=== PATIENT | male | born 1955 | race Two or more races ===

== ENCOUNTER 2024-05-15 12:28 | Emergency (ER) | payer MEDICARE, MEDICAID, SELFPAY ==
--- NOTE | 2024-05-15 12:42 | XR_ITS ---
Examination: PA chest single view Technique: Upright PA chest single view Exam date and time: May 15, 2024 1251 hrs. Comparison March 29, 2021 Indications: Abdominal pain and fever beginning one week ago. Findings: Early bibasilar pneumonia Mild prominence of ventricle Mild vascular congestion including central vascular engorgement No larry pulmonary edema Impression: Early bibasilar pneumonia
--- NOTE | 2024-05-15 12:42 | XR_ITS ---
Examination: CT abdomen and pelvis without contrast. Coronal 3-D reconstructions. Sagittal 2-D reconstructions. Date and time of exam:May 15, 2024 1329 hrs. Comparison January 02, 2024 Indications: Abdominal pain and nausea of one week CTDI: vol (mGy): 5.43 DLP: (mGycm): 282 Technique: Axial images of the abdomen have been obtained, 3 mm slice thickness Intravenous contrast material has not been administered. Low dose protocols were performed. One or more of the following dose reduction techniques were used; automated exposure control, adjustment of the mA and/or KV according to patient size, use of iterative reconstruction technique. Findings: Focal opacity right base image 39, consider early pneumonia Mild enlargement cardiac contour No focal liver lesions Absent gallbladder Common hepatic duct 8 mm Spleen is not enlarged No pancreatic or adrenal mass No renal or ureteral calculi, no hydronephrosis Abdominal aortic calcification no aneurysmal dilatation Normal appendix A few loops of fluid distended small bowel in the anterior lower abdomen for instance axial image 129 No larry bowel obstruction Air distended rectum Normal seminal vesicles Transverse prostate dimension 4.3 cm Minimal thickening of urinary bladder wall up to 3 mm Moderate osteopenia Moderate to advanced disc narrowing L5-S1 Mild narrowing hip joints Impression: Focal opacity right base consistent with pneumonia Absent gallbladder Common hepatic duct 8 mm, recommend repeat hepatobiliary sonography follow-up No renal or ureteral calculi, no hydronephrosis Normal appendix Mildly fluid distended small bowel loops in the lower abdomen, consider ileus, enteritis such as Crohn's disease
[2024-05-15 13:05] VITALS: BP 133/77; PULSE 66; RESP 20; TEMP 36.4; O2SAT 97; BMI 20.4
[2024-05-15] MEDS: ONDANSETRON ODT 4 MG TABRAP PO (13:22)
[2024-05-15] MEDS: ACETAMINOPHEN w/COD 300-30 TABLET 2 TAB PO (13:22)
[2024-05-15 13:25] LABS: Basophils % (Auto) 0 % (0-2.5); Eosinophils % (Auto) 0 % (0-10); Hematocrit 39.9 % (41.0-53.0); Hemoglobin 13.2 g/dL (13.5-16.0); Immature Granulocytes % (Auto) 1 % (0-0); Immature Granulocytes Auto 0.15 Thou/mm3 (0.00-0.00); Lymphocytes # (Auto) 1.3 Thou/mm3 (1.0-4.8); Lymphocytes % (Auto) 9 % (10-50); Mean Corpuscular HGB Conc 33.1 g/dl (31.0-37.0); Mean Corpuscular Hemoglobin 25.8 pg (25.0-35.0); Mean Corpuscular Volume 78 fL (80-100); Monocytes # (Auto) 0.7 Thou/mm3 (0.0-0.8); Monocytes % (Auto) 5 % (0-12); Neutrophils # (Auto) 12.3 Thou/mm3 (1.8-7.7); Neutrophils % (Auto) 85 % (37-80); Nucleated Red Blood Cell % 0 /100 WBC (0); Platelet Count 427 Thou/mm3 (140-440); RDW Standard Deviation 42.5 fL (35.1-43.9); Red Blood Count 5.11 Miln/mm3 (4.50-5.90); White Blood Count 14.4 Thou/mm3 (3.8-10.6)
[2024-05-15 14:02] LABS: Alanine Aminotransferase 11 U/L (10-49); Albumin, Serum 4.3 gm/dL (3.4-4.8); Albumin/Globulin Ratio 1.4 (1.2-2.2); Alkaline Phosphatase 97 U/L (46-116); Amylase 35 U/L (30-118); Anion Gap 10 (7-16); Aspartate Amino Transferase 10 U/L (0-34); BUN/Creatinine Ratio 25 Ratio (12-20); Bilirubin,Total 0.5 mg/dL (0.3-1.2); Blood Urea Nitrogen 15 mg/dL (9-23); Calcium 9.3 mg/dL (8.3-10.6); Calcium (Corrected) 9.3 mg/dL (8.5-10.1); Carbon Dioxide 25.3 mMol/L (20.0-31.0); Chloride 99 mMol/L (98-107); Creatinine (Component) 0.6 mg/dL (0.6-1.3); Globulin 3.1 gm/dL (2.3-3.5); Glucose 128 mg/dL (74-106); Lipase 28 U/L (12-53); Magnesium 1.9 mg/dL (1.6-2.6); Osmolality,Calculated 271 (275-295); Potassium 3.7 mMol/L (3.4-5.1); Sodium 134 mMol/L (136-145); Total Protein 7.4 gm/dL (5.7-8.2); eGFR > 60 See Note
[2024-05-15] MEDS: AZITHROMYCIN 250 MG TABLET 500 MG PO (14:04)
--- NOTE | 2024-05-15 14:30 | PD.EDABDPN ---
ED Abdominal Pain RME/HPI General Chief Complaint: Abdominal Pain Stated complaint: ABD PAIN/FEVER x 1 WEEK Time seen by provider: 05/15/24 12:30 Arrival date/time: 05/15/24 12:28 RME / HPI RME / HPI narrative: This section includes all my notes and documentations, including HPI, PE, and ED course. Jeronimo Hernandez MD HPI: 69-year-old male here with about a week history of worsening cough, productive cough, purulent sputum, and dyspnea. And abdominal pain and vomiting and diarrhea. No obvious fever. No other complaints. ROS: All negative except as documented in HPI. Physical Exam: General: Alert and oriented. Hacking cough noted. Eyes: Conjunctivae and lids clear. ENT: No nasal congestion. Pharynx normal. TM normal bilaterally. Neck: Supple. Heart: RRR. Lungs: No respiratory distress. Good air movement with bilateral rhonchi. Abdomen: Soft with equivocal tenderness, difficult to localize. Normal bowel sounds. No distension. No rebound or guarding. Back: No CVA tenderness. Skin: Warm and dry. Neuro: Alert and oriented X 3. I reviewed all diagnostic test results. My interpretation of the chest x-ray is infiltrates. My review of the abdominal CT report is enteritis. Blood tests remarkable for WBC 14.4. At this point, diagnoses include pneumonia and enteritis. Treatment here included Zofran and two Tylenol #3 and Zithromax Significant improvement noted. Recommended a trial of outpatient treatment. Based on my best medical judgment, made decision no further evaluation or treatment indicated at this time. Patient understands and agrees to the discharge instructions customized and printed, see below. Discharge instructions from Dr. Hernandez: --After evaluation, you have pneumonia (infection of the lungs) and enteritis (infection of your intestines). --No physical exertion for 3 days to help rest the lungs. --No smoking or exposure to smoking or pets or dust or cold or humidity. --Levaquin and Flagyl to kill the germs causing the infections. --Prednisone to help decrease inflammation for both infections. --Albuterol 2 puffs every 4-6 hours as needed for cough or shortness of breath. --Zofran for nausea/vomiting. For good hydration, increase oral fluid and maintain clear urine. If dark or yellow, increase oral fluid. --Tylenol with codeine for severe pain. --See a private doctor on 05/17/2024 for recheck and further care. Ask for help until you are completely better. To make sure there is no serious intra-abdominal condition, ask for help with more investigation not available here in the ER. Such as EGD or scoping the stomach, colonoscopy or scoping the colon, and referral to see senior underwriting assistant. --Seek immediate medical care with worsening or with any concerns. Jeronimo Hernandez MD Related Data Home Medications ?Medication ?Instructions ?Recorded ?Confirmed aspirin 81 mg tablet 81 mg PO DAILY ##0 07/14/09 03/22/21 clopidogrel 75 mg tablet (Plavix) 75 mg PO DAILY ##0 07/14/09 03/22/21 simvastatin 40 mg tablet (Zocor) 40 mg PO HS High Cholesterol #0 11/15/13 03/22/21 tabs nitroglycerin 0.4 mg sublingual 0.4 mg SL PRN PRN CHEST PAIN #0 07/20/14 03/22/21 tablet (Nitrostat) tabs gabapentin 600 mg tablet 600 mg PO TID 10/16/20 03/22/21 amitriptyline 25 mg tablet 25 mg PO QDAY 03/22/21 03/22/21 hydrocodone 5 mg-acetaminophen 325 1 tab PO QDAY 03/22/21 03/22/21 mg tablet Previous Rx's ?Medication ?Instructions ?Recorded cephalexin 750 mg capsule (Keflex) 750 mg PO BID #10 caps 03/22/21 dexamethasone 6 mg tablet 6 mg PO QDAY #7 tabs 03/29/21 (Decadron) ibuprofen 600 mg tablet 600 mg PO Q8H PRN pain #30 tabs 03/29/21 cyclobenzaprine 10 mg tablet 10 mg PO HS PRN muscle spasm #14 04/29/21 tabs ibuprofen 600 mg tablet 600 mg PO Q8H PRN pain #30 tabs 04/29/21 ciprofloxacin HCl 500 mg tablet 500 mg PO BID #14 tabs 01/02/24 (Cipro) dicyclomine 20 mg tablet 20 mg PO QID PRN abdominal pain 01/02/24 #30 tabs acetaminophen 300 mg-codeine 30 mg 2 tab PO TID PRN pain #20 tabs 05/15/24 tablet albuterol sulfate 90 mcg/actuation 2 inh inhalation QID PRN shortness 05/15/24 aerosol inhaler of breath or wheezing #8.5 grams levofloxacin 500 mg tablet 500 mg PO QDAY 10 days #10 tabs 05/15/24 metronidazole 500 mg tablet 500 mg PO BID 10 days #20 tabs 05/15/24 ondansetron 4 mg disintegrating 4 mg PO TID PRN nausea and 05/15/24 tablet vomiting 5 days #10 tabs prednisone 50 mg tablet 50 mg PO QDAY #3 tabs 05/15/24 Allergies Allergy/AdvReac Type Severity Reaction Status Date / Time almond Allergy Severe Difficulty Verified 05/15/24 12:31 Breathing almond oil Allergy Severe DIFFICULTY Verified 05/15/24 12:31 BREATHING fish derived Allergy Severe Difficulty Verified 05/15/24 12:31 Breathing fish oil Allergy Severe Difficulty Verified 05/15/24 12:31 Breathing Course Quality Measures none Orders Category Date Time Status Bedside COVID-19 Antigen Test NOW Care 05/15/24 12:41 Completed Bedside Influenza A&B Antigen Test NOW Care 05/15/24 12:[address] abdomen pelvis wo con Stat Exams 05/15/24 12:42 Completed XR chest 1V portable Stat Exams 05/15/24 12:42 Completed Amylase Stat Lab 05/15/24 13:06 Completed CBC Stat Lab 05/15/24 13:06 Completed CMP [Comprehensive Metabolic Panel] Stat Lab 05/15/24 13:06 Completed Lipase Stat Lab 05/15/24 13:06 Completed Magnesium Stat Lab 05/15/24 13:06 Completed ACETAMINOPHEN w/COD 300-30 [Tylenol w/Cod #3] Med 05/15/24 12:41 Discontinued 2 tab PO X1 ONE Azithromycin Po [Zithromax PO] Med 05/15/24 13:33 Discontinued 500 mg PO X1 ONE Ondansetron Odt [Zofran Odt] Med 05/15/24 12:41 Discontinued 4 mg PO X1 ONE Vital Signs Vital signs: Vital Signs Temperature 97.6 F 05/15/24 13:05 Pulse Rate 66 05/15/24 13:05 Respiratory Rate 20 05/15/24 13:05 Blood Pressure 133/77 H 05/15/24 13:05 Pulse Oximetry (%) 97 01/11/25 13:05 Oxygen Delivery Method Room Air 05/15/24 13:05 Abdominal Pain MDM Patient data External records reviewed:: [facility] previous records Clinical information provided by:: patient Social determinants that could affect healthcare access:: none Patient has the following chronic illnesses:: See chart How is presenting disease/condition affected by chronic disease/condition?: exacerbated by Evaluation data The following diagnostics were reviewed and interpreted by me:: lab results and radiology exam(s) Lab and/or radiology exams considered but not ordered:: None Interpretation Summary: Pneumonia and enteritis Medications / Prescriptions Medications or Prescriptions considered but not ordered:: None Medication administrations:: Medication Administration History Discontinued Medications Acetaminophen/Codeine Phosphate (Acetaminophen W/Cod 300-30 Tablet) 2 tab PO X1 ONE Stop: 05/15/24 12:42 Last Admin: 05/15/24 13:22 Dose: 2 tab Documented By: Azithromycin (Azithromycin 250 Mg Tablet) 500 mg PO X1 ONE Stop: 05/15/24 13:34 Last Admin: 05/15/24 14:04 Dose: 500 mg Documented By: Ondansetron HCl (Ondansetron Odt 4 Mg Tabrap) 4 mg PO X1 ONE; Protocol Stop: 05/15/24 12:42 Last Admin: 05/15/24 13:22 Dose: 4 mg Documented By: Zofran and two Tylenol #3 and Zithromax Consultations Consultation(s) initiated? (list below): No Diagnosis Differential diagnosis abdominal pain: acute appendicitis, calculus of kidney, diverticulitis, gastroenteritis, pancreatitis and small bowel obstruction Most likely diagnosis given after review of the tests above:: Pneumonia and enteritis Admission Indicated Admission indicated?: not indicated Explain why admission is indicated or not indicated:: Admission criteria not met Admission Request Was there a request for admission?: No Disposition Plan Disposition Plan: Discharge Discharge Attestation Discharge Attestation: The patient and all family members were given an opportunity to ask questions and understood the discharge instructions. Discharge instructions specifically effects, indications for sooner follow up or return to the emergency department, and the expected course of current diagnosis. Patient condition: Stable Discharge Plan Plan Patient Disposition: HOME (Self Care) Prescriptions/Referrals Prescriptions/Med Rec: New metronidazole 500 mg tablet 500 mg PO BID 10 Days Qty: 20 0RF acetaminophen-codeine 300-30 mg tablet 2 tab PO TID MDD 6 PRN (Reason: pain) Qty: 20 0RF albuterol sulfate 90 mcg/actuation HFA aerosol inhaler 2 inh inhalation QID PRN (Reason: shortness of breath or wheezing) Qty: 8.5 0RF ondansetron 4 mg tablet,disintegrating 4 mg PO TID PRN (Reason: nausea and vomiting) 5 Days Qty: 10 0RF levofloxacin 500 mg tablet 500 mg PO QDAY 10 Days Qty: 10 0RF prednisone 50 mg tablet 50 mg PO QDAY Qty: 3 0RF No Action clopidogrel [Plavix] 75 MG tablet 75 mg PO DAILY Qty: 0 aspirin 81 MG tablet 81 mg PO DAILY Qty: 0 simvastatin [Zocor] 40 MG tablet 40 mg PO HS Qty: 0 nitroglycerin [Nitrostat] 0.4 MG tablet, sublingual 0.4 mg SL PRN PRN (Reason: CHEST PAIN) Qty: 0 gabapentin 600 mg tablet 600 mg PO TID hydrocodone-acetaminophen 5-325 mg tablet 1 tab PO QDAY amitriptyline 25 mg tablet 25 mg PO QDAY cephalexin [Keflex] 750 mg capsule 750 mg PO BID Qty: 10 0RF ibuprofen 600 mg tablet 600 mg PO Q8H PRN (Reason: pain) Qty: 30 0RF dexamethasone [Decadron] 6 mg tablet 6 mg PO QDAY Qty: 7 0RF ibuprofen 600 mg tablet 600 mg PO Q8H PRN (Reason: pain) Qty: 30 0RF cyclobenzaprine 10 mg tablet 10 mg PO HS PRN (Reason: muscle spasm) Qty: 14 0RF ciprofloxacin HCl [Cipro] 500 mg tablet 500 mg PO BID Qty: 14 0RF dicyclomine 20 mg tablet 20 mg PO QID PRN (Reason: abdominal pain) Qty: 30 0RF Referrals: Juarez Griffin PA-C [Primary Care Provider] - In 1 week Problem List Clinical Impression: Pneumonia, Enteritis Patient/Caregiver Discharge Instructions Discharge Activity: activity as tolerated Education Materials: ED Gastroenteritis, Noninfectious, ED Pneumonia (Adult) Additional Instructions: Discharge instructions from Dr. Hernandez: --After evaluation, you have pneumonia (infection of the lungs) and enteritis (infection of your intestines). --No physical exertion for 3 days to help rest the lungs. --No smoking or exposure to smoking or pets or dust or cold or humidity. --Levaquin and Flagyl to kill the germs causing the infections. --Prednisone to help decrease inflammation for both infections. --Albuterol 2 puffs every 4-6 hours as needed for cough or shortness of breath. --Zofran for nausea/vomiting. For good hydration, increase oral fluid and maintain clear urine. If dark or yellow, increase oral fluid. --Tylenol with codeine for severe pain. --See a private doctor on 05/17/2024 for recheck and further care. Ask for help until you are completely better. To make sure there is no serious intra-abdominal condition, ask for help with more investigation not available here in the ER. Such as EGD or scoping the stomach, colonoscopy or scoping the colon, and referral to see senior underwriting assistant. --Seek immediate medical care with worsening or with any concerns. Print Language: Romansh Stand Alone Forms: [employer] Award Info., Patient Portal Info Letter
== END 2024-05-15 14:47 | disposition home or self-care (01) ==
PROVIDERS: Emergency Provider Emergency Medicine; PCP Physician Assistant
DX: J18.9 Pneumonia, unspecified organism (principal); K52.9 Noninfective gastroenteritis and colitis, unspecified
CPT/HCPCS: 36415; 71045; 74176; 80053; 82150; 83690; 83735; 85025; 87400; 87811; 99284; Q0162; A9270

== ENCOUNTER 2024-09-20 05:29 | Emergency (ER) | payer MEDICARE, MEDICAID, SELFPAY ==
[2024-09-20] VITALS (8 sets, daily range): BP systolic 127–153; BP diastolic 63–75; PULSE 50–73; RESP 15–25; TEMP 36.6–37.1; O2SAT 92–100; BMI 22.6
--- NOTE | 2024-09-20 05:40 | EKG_ITS ---
[facility] Test Date: 2024-09-20 Pat Name: BETH GONZALEZ Department: Room: - Gender: Male Pathology Collector: : 1955 Requested By: Robin Eddy Order Number: [id number] Reading MD: Robin Eddy Measurements Intervals Sacul Rate: 49 P: 52 [place]: 178 QRS: 26 QRSD: 110 T: -82 QT: 471 QTc: 427 Interpretive Statements SINUS BRADYCARDIA Compared to ECG 12/28/2021 15:17:39 Sinus rhythm no longer present /store/[id number].pdf
--- NOTE | 2024-09-20 05:41 | PD.EDRME ---
Rapid Medical Screening Exam RME Arrival date/time: 09/20/24 05:29 Chief Complaint: Abdominal Pain Time Seen by Provider: 09/20/24 05:43 Vital signs: Vital Signs Temperature 97.8 F 09/20/24 05:44 Pulse Rate 52 L 09/20/24 05:44 Respiratory Rate 15 09/20/24 05:44 Blood Pressure 153/75 H 09/20/24 05:44 Pulse Oximetry (%) 97 09/20/24 05:44 Oxygen Delivery Method Room Air 09/20/24 05:44 RME Narrative: 69yo male with a history of HTN, HLD, DC (2004), cholecystectomy BIBA from home presents to the ED for a chief complaint of epigastric pain x 1 day. Pain is sharp and severe in nature. Reports associated N/V x1. Patient is a current tobacco smoker, but denies any alcohol or illicit drug use. He is not taking any of his medications.
--- NOTE | 2024-09-20 05:53 | XR_ITS ---
Examination: Abdominal series 3 views with AP upright chest TECHNIQUE: AP upright chest AP upright AP supine abdomen total 3 views Date and time: September 20, 2024 0719 hours INDICATIONS: Abdominal pain and distention this read. FINDINGS: Air distended small bowel loops in the left abdomen There is air and stool in the colon No free air IMPRESSION: Suspicious for early small bowel obstruction, consider CT scan abdomen and pelvis with intravenous contrast follow-up
--- NOTE | 2024-09-20 06:00 | PC.NURSE ---
Clear Coat Sprayer assumes care of patient at this time, Pt BIBA from home with c/o epigastic painx 1 day. Pt is A/O x 3 but appears very lethargic, pt is able to follow engineering writer commands and refuses to change into gown at this time. fur trapper made aware.
[2024-09-20] MEDS: SODIUM CHLORIDE 0.9% 500 ML 500 ML 999 ML IV (06:03)
[2024-09-20] MEDS: ONDANSETRON INJ 2 MG/ML INJ 2 ML 4 MG IV (06:05)
[2024-09-20 06:07] LABS: Basophils # (Auto) 0.1 Thou/mm3 (0.0-0.2); Basophils % (Auto) 0 % (0-2.5); Eosinophils # (Auto) 0.2 Thou/mm3 (0.0-0.5); Eosinophils % (Auto) 1 % (0-10); Hemoglobin 12.9 g/dL (13.5-16.0); Immature Granulocytes % (Auto) 0 % (0-0); Immature Granulocytes Auto 0.04 Thou/mm3 (0.00-0.00); Lymphocytes # (Auto) 1.6 Thou/mm3 (1.0-4.8); Lymphocytes % (Auto) 10 % (10-50); Mean Corpuscular HGB Conc 32.3 g/dl (31.0-37.0); Mean Corpuscular Hemoglobin 26.2 pg (25.0-35.0); Mean Corpuscular Volume 81 fL (80-100); Monocytes # (Auto) 0.7 Thou/mm3 (0.0-0.8); Monocytes % (Auto) 5 % (0-12); Neutrophils # (Auto) 13.3 Thou/mm3 (1.8-7.7); Neutrophils % (Auto) 84 % (37-80); Nucleated Red Blood Cell % 0 /100 WBC (0); Platelet Count 263 Thou/mm3 (140-440); RDW Standard Deviation 52.8 fL (35.1-43.9); Red Blood Count 4.93 Miln/mm3 (4.50-5.90); White Blood Count 15.9 Thou/mm3 (3.8-10.6)
[2024-09-20 06:27] LABS: Prothrombin Time 11.4 Seconds (9.0-12.2)
--- NOTE | 2024-09-20 06:36 | EDNOTE_ITS ---
ED General RME/HPI General Chief complaint: Abdominal Pain Stated complaint: ABD PAIN,N/V Time Seen by Provider: 09/20/24 05:43 Arrival date/time: 09/20/24 05:29 RME / HPI RME / HPI narrative: This patient is a 69-year-old male with past medical history of hypertension, CT in 2004, hyperlipidemia, history of cholecystectomy presented to the ED on 09/20/2024 with chief complaint of 1 day history of epigastric pain and RUQ pain severe sharp in nature nonradiating associated with nausea and vomiting. Patient reported that he vomited twice consisting of digested food particles without blood. He also reported that he is passing bowel movements regularly and had a bowel movement this morning with passage of flatus. He reported to have some mild cough without phlegm. He was feeling shaky this morning. He denied any chest pain, shortness of breath, dysuria. Patient follows up with his PCP as outpatient. Patient had been previously admitted for the similar presentation multiple times in the hospital with multiple CT scans showing intrahepatic biliary tract dilation and was recommended to have elective MRCP as outpatient however patient was not aware of his previous CT findings. Patient did not proceed with the investigation for intrahepatic biliary tract dilation with his PCP and was not aware on his findings. Abdominal x-ray was suspicious for early SBO however patient was passing gas and having bowel movements ther efore had low suspicion for SBO. Patient also had chronic cough ongoing from last couple of months most likely due to chronic bronchitis pattern. EKG showed sinus bradycardia with QTc 427. No axis deviation. Vitals showed blood pressure 142/75, heart rate 71, respiratory 20 and afebrile. He was saturating well on room air. Labs were significant for leukocytosis white count 15.9, hemoglobin 12.9. INR 1.0. Chemistry panel showed sodium 142 potassium 3.5, chloride 107. Kidney function showed BUN 12 and creatinine 0.9. Blood glucose 130. Serum lipase was negative. Magnesium 1.9. Urinalysis is pending. PMH: As above PSH: Cholecystectomy SH: Smokes 1 pack of cigarette every day. Denies drinking alcohol. No history of illicit drug use. Allergies: NKDA Home medications: Aspirin, Plavix, breathing inhalers,simvastatin per chart review Differential diagnoses include SBO, pancreatitis, GERD, primary sclerosing cholangitis, cholangiocarcinoma, chronic bronchitis 8:17 AM patient was given Dilaudid 0.5 mg IV x 1, 1 L NS, PO kcl 20 meq x1 and breathing treatments with albuterol and ipratropium. Patient reported that his pain is much better than previously. X-ray was suspicious for early SBO however patient was passing gas and bowel movements appropriately and had a bowel movement this morning. Patient was advised to follow-up with his PCP for workup of intrahepatic biliary tract dilation with an MRCP and was given option to visit [facility] across the street and all the information was provided. SBO and pancreatitis were ruled out. DC instructions Patient was advised to follow-up with his PCP for referral for GI specialist and acquiring MRCP for possible workup of intrahepatic biliary tract dilation Continue taking all his medications as prescribed Patient can schedule an appt in [place] [facility] at [address] by calling [phone] In case of emergency or worsening signs of symptoms patient was advised to come back to the ER or call 911 complaint: Epigastric abdominal pain and right upper quadrant Onset (ago): day(s) (1) Location: abdomen (Epigastrium and right upper quadrant) Radiation: non-radiation Severity: severe Quality: stabbing Consistency: intermittent Relieving factors: none Associated symptoms: nausea/vomiting Related Data Home Medications ?Medication ?Instructions ?Recorded ?Confirmed aspirin 81 mg tablet 81 mg PO DAILY ##0 07/14/09 03/22/21 clopidogrel 75 mg tablet (Plavix) 75 mg PO DAILY ##0 0 07/14/09 03/22/21 simvastatin 40 mg tablet (Zocor) 40 mg PO HS High Chol esterol #0 11/15/13 03/22/21 tabs nitroglycerin 0.4 mg sublingual 0.4 mg SL PRN PRN CHES T PAIN #0 07/20/14 tablet (Nitrostat) tabs gabapentin 600 mg tablet 600 mg PO TID 10/16/2003/22 amitriptyline 25 mg tablet 25 mg PO QDAY 03/22/2103/05 hydrocodone 5 mg-acetaminophen 325 1 tab PO QDAY 03/2203/22/21 mg tablet Previous Rx's ?Medication ?Instructions ?Recorded cephalexin 750 mg capsule (Keflex) 750 mg PO BID #10 c aps 03/22/21 dexamethasone 6 mg tablet 6 mg PO QDAY #7 tabs 03/29/ 1 (Decadron) ibuprofen 600 mg tablet 600 mg PO Q8H PRN pain #30 t abs 03/29/21 cyclobenzaprine 10 mg tablet 10 mg PO HS PRN muscle sp asm #14 04/29/21 tabs ibuprofen 600 mg tablet 600 mg PO Q8H PRN pain #30 t abs 04/29/21 ciprofloxacin HCl 500 mg tablet 500 mg PO BID #14 tabs 01/02/24 (Cipro) dicyclomine 20 mg tablet 20 mg PO QID PRN abdominal p ain 01/02/24 #30 tabs acetaminophen 300 mg-codeine 30 mg 2 tab PO TID PRN pa in #20 tabs 05/15/24 tablet albuterol sulfate 90 mcg/actuation 2 inh inhalation QI D PRN shortness 05/15/24 aerosol inhaler of breath or wheezing #8.5 g gene prednisone 50 mg tablet 50 mg PO QDAY #3 tabs Allergies Allergy/AdvReac Type Severity Reaction Status Date / Time almond Allergy Severe Difficulty Verified 05/15/24 12:31 Breathing almond oil Allergy Severe DIFFICULTY Verified 05/15/24 12:31 BREATHING fish derived Allergy Severe Difficulty Verified 05/15/24 12:31 Breathing fish oil Allergy Severe Difficulty Verified 05/15/24 12:31 Breathing Review of Systems Review of Systems Systems Reviewed: All systems reviewed, normal except as documented Past Medical History Past Medical History CARDIAC: Positive Cardiac Disorders, Myocardial Infarction, Hypercholesterolemia and Hypertension; Negative Congestive Heart Failure RESPIRATORY: Positive Asthma; Negative Chronic Obstructive Pulmonary Disease (COPD) GASTROINTESTINAL: Positive Gastrointestinal Disorders, Gall Bladder Disease and Gastroesophageal Reflux Disease GENITOURINARY: Negative Renal Disease ENDOCRINE: Negative Diabetes Mellitus Type 1 or Diabetes Mellitus Type 2 HEMATOLOGIC: Negative Sickle Cell Disease PSYCHO/SOCIAL: Positive Anxiety Surgical History SURGICAL: Positive Tonsillectomy and Abdominal Surgery Social History SMOKING STATUS: Heavy (> 1 pack/day) Travel History EBOLA RISK: No ED Exam Narrative Physical exam: GENERAL APPEARANCE: AxOx4, male in mild distress due to abdominal pain. Saturating well on room air. HEENT: NC, AT. Dry mucous membrane. EOMI, clear conjunctiva, oropharynx clear. NECK: Supple without lymphadenopathy. No stiffness or restricted ROM. HEART: Sinus bradycardia with regular rhythm, normal S1/S2, no m/r/g LUNGS: CTAB, moving air well. Mild wheezing heard on auscultation. ABDOMEN: Soft, epigastric and right upper quadrant tenderness nondistended with good bowel sounds heard. BACK: No CVAT, no obvious deformity. EXTREMITIES: Without cyanosis, clubbing or edema. NEUROLOGICAL: Grossly nonfocal. Alert and oriented, moving all 4 extremities. CN not formally tested but appear grossly intact. Observed to ambulate with normal gait. Skin: Warm and dry without any rash. Pscyh: Appropriate mood and affect Course Course Course Narrative: This patient is a 69-year-old male with past medical history of hypertension, CT in 2004, hyperlipidemia, history of cholecystectomy presented to the ED on 09/20/2024 with chief complaint of 1 day history of epigastric pain and RUQ pain severe sharp in nature nonradiating associated with nausea and vomiting. Patient reported that he vomited twice consisting of digested food particles without blood. He also reported that he is passing bowel movements regularly and had a bowel movement this morning with passage of flatus. He reported to mal[place] ve some mild cough without phlegm. He was feeling shaky this morning. He denied any chest pain, shortness of breath, dysuria. Patient follows up with his PCP as outpatient. Patient had been previously admitted for the similar presentation multiple times in the hospital with multiple CT scans showing intrahepatic biliary tract dilation and was recommended to have elective MRCP as outpatient however patient was not aware of his previous CT findings. Patient did not proceed with the investigation for intrahepatic biliary tract dilation with his PCP and was not aware on his findings. Abdominal x-ray was suspicious for early SBO however patient was passing gas and having bowel movements therefore had low suspicion for SBO. Patient also had chronic cough ongoing from last couple of months most likely due to chronic bronchitis pattern. EKG showed sinus bradycardia with QTc 427. No axis deviation. Vitals showed blood pressure 142/75, heart rate 71, respiratory 20 and afebrile. He was saturating well on room air. Labs were significant for leukocytosis white count 15.9, hemoglobin 12.9. INR 1.0. Chemistry panel showed sodium 142 potassium 3.5, chloride 107. Kidney function showed BUN 12 and creatinine 0.9. Blood glucose 130. Serum lipase was negative. Magnesium 1.9. Urinalysis is pending. Differential diagnoses include SBO, pancreatitis, GERD, primary sclerosing chola ngitis, cholangiocarcinoma, chronic bronchitis 8:17 AM patient was given Dilaudid 0.5 mg IV x 1, 1 L NS, PO kcl 20 meq x1 and breathing treatments with albuterol and ipratropium. Patient reported that his pain is much better than previously. X-ray was suspicious for early SBO however patient was passing gas and bowel movements appropriately and had a bowel movement this morning. Patient was advised to follow-up with his PCP for workup of intrahepatic biliary tract dilation with an MRCP and was given option to visit [facility] across the street and all the information was prov ided. SBO and pancreatitis were ruled out. DC instructions Patient was advised to follow-up with his PCP for referral for GI specialist and acquiring MRCP for possible workup of intrahepatic biliary tract dilation Continue taking all his medications as prescribed Patient can schedule an appt in [place] [facility] at [address] by calling [phone] In case of emergency or worsening signs of symptoms patient was advised to come back to the ER or call 911 Quality Measures none Orders Category Date Time Status Crawler Tractor Operator STAT Care 09/20/24 05:45 Active Continuous Pulse Oximetry STAT Care 09/20/24 05:46 Completed EKG (ED ONLY) *Do not use* NOW Care 09/20/24 05:40 Completed Insert IV STAT Care 09/20/24 05:45 Active Intake and Output Routine Care 09/20/24 05:46 Ordered NPO STAT Care 09/20/24 05:45 Active EKG (ED Only) Stat Exams 09/20/24 05:40 Draft XR abdomen series w chest 1V Stat Exams 09/20/24 05:53 Completed CBC Stat Lab 09/20/24 05:50 Completed Comprehensive Metabolic Panel Stat Lab 09/20/24 05:50 Completed Lipase Stat Lab 09/20/24 05:50 Completed Magnesium Stat Lab 09/20/24 05:50 Completed Prothrombin Time with INR Stat Lab 09/20/24 05:50 Completed Urinalysis Stat Lab 09/20/24 07:43 Completed ALBUTEROL RT 0.5ml [Proventil Rt 0.5ml] Med 09/20/24 07:37 Discontinued 10 mg INH X1 ONE Albuterol/Ipratr Rt Michelle [Duoneb Rt Michelle] Med 09/20/24 07:37 Discontinued 3 ml INH X1 ONE HYDROmorphone INJ [Dilaudid Inj] Med 09/20/24 06:00 Discontinued 0.5 mg IVP Q30MIN PRN Ipratropium [place] Rt Michelle [Atrovent Rt Michelle] Med 09/20/24 07:37 Discontinued 1 mg INH X1 ONE Ondansetron Inj [Zofran Inj] Med 09/20/24 05:51 Discontinued 4 mg IV X1 ONE Potassium Chloride [K-Dur] Med 09/20/24 08:13 Discontinued 20 meq PO X1 ONE Sodium Chloride 0.9% 500 ml [Ns] 500 ml Med 09/20/24 05:51 Discontinued IV 999 mls/hr Sodium Chloride Rt Michelle 0.9% [NS Rt Michelle 0.9%] Med 09/20/24 07:37 Active 3 ml INH PRN PRN Vital Signs Vital signs: Vital Signs Temperature 97.8 F 09/20/24 05:44 Pulse Rate 52 L 09/20/24 05:44 Respiratory Rate 15 09/20/24 05:44 Blood Pressure 153/75 H 09/20/24 05:44 Pulse Oximetry (%) 97 09/20/24 05:44 Oxygen Delivery Method Room Air 09/20/24 05:44 Discharge Plan Plan Patient Disposition: HOME (Self Care) Prescriptions/Referrals Prescriptions/Med Rec: No Action clopidogrel [Plavix] 75 MG tablet 75 mg PO DAILY Qty: 0 aspirin 81 MG tablet 81 mg PO DAILY Qty: 0 simvastatin [Zocor] 40 MG tablet 40 mg PO HS Qty: 0 nitroglycerin [Nitrostat] 0.4 MG tablet, sublingual 0.4 mg SL PRN PRN (Reason: CHEST PAIN) Qty: 0 gabapentin 600 mg tablet 600 mg PO TID hydrocodone-acetaminophen 5-325 mg tablet 1 tab PO QDAY amitriptyline 25 mg tablet 25 mg PO QDAY cephalexin [Keflex] 750 mg capsule 750 mg PO BID Qty: 10 0RF ibuprofen 600 mg tablet 600 mg PO Q8H PRN (Reason: pain) Qty: 30 0RF dexamethasone [Decadron] 6 mg tablet 6 mg PO QDAY Qty: 7 0RF ibuprofen 600 mg tablet 600 mg PO Q8H PRN (Reason: pain) Qty: 30 0RF cyclobenzaprine 10 mg tablet 10 mg PO HS PRN (Reason: muscle spasm) Qty: 14 0RF ciprofloxacin HCl [Cipro] 500 mg tablet 500 mg PO BID Qty: 14 0RF dicyclomine 20 mg tablet 20 mg PO QID PRN (Reason: abdominal pain) Qty: 30 0RF acetaminophen-codeine 300-30 mg tablet 2 tab PO TID MDD 6 PRN (Reason: pain) Qty: 20 0RF albuterol sulfate 90 mcg/actuation HFA aerosol inhaler 2 inh inhalation QID PRN (Reason: shortness of breath or wheezing) Qty: 8.5 0RF prednisone 50 mg tablet 50 mg PO QDAY Qty: 3 0RF Referrals: Juarez Griffin PA-C [Primary Care Provider] - In 1 week Problem List Clinical Impression: Abdominal pain, Intrahepatic bile duct dilation Patient/Caregiver Discharge Instructions Other Activity Instructions:: Patient was advised to follow-up with his PCP for referral for GI specialist and acquiring MRCP for possible workup of intrahepatic biliary tract dilation Continue taking all his medications as prescribed In case of emergency or worsening signs of symptoms patient was advised to come back to the ER or call 911 Patient can schedule an appt in [place] [facility] [address] by calling [phone] Print Language: Australian Stand Alone Forms: [employer] Info., Patient Portal Info Letter MDM Narrative MDM hospital course (for use when minimal MDM required): This patient is a 69-year-old male with past medical history of hypertension, CT in 2004, hyperlipidemia, history of cholecystectomy presented to the ED on 09/20/2024 with chief complaint of 1 day history of epigastric pain and RUQ pain severe sharp in nature nonradiating associated with nausea and vomiting. Patient reported that he vomited twice consisting of digested food particles without blood. He also reported that he is passing bowel movements regularly and had a bowel movement this morning with passage of flatus. He reported to have some mild cough without phlegm. He was feeling shaky this morning. He denied any chest pain, shortness of breath, dysuria. Patient follows up with his PCP as outpatient. Patient had been previously admitted for the similar presentation multiple times in the hospital with multiple CT scans showing intrahepatic biliary tract dilation and was recommended to have elective MRCP as outpatient however patient was not aware of his previous CT findings. Patient did not proceed with the investigation for intrahepatic biliary tract dilation with his PCP and was not aware on his findings. Abdominal x-ray was suspicious for early SBO however patient was passing gas and having bowel movements therefore had low suspicion for SBO. Patient also had chronic cough ongoing from last couple of months most likely due to chronic bronchitis pattern. EKG showed sinus bradycardia with QTc 427. No axis deviation. Vitals showed blood pressure 142/75, heart rate 71, respiratory 20 and afebrile. He was saturating well on room air. Labs were significant for leukocytosis white count 15.9, hemoglobin 12.9. INR 1.0. Chemistry panel showed sodium 142 potassium 3.5, chloride 107. Kidney function showed BUN 12 and creatinine 0.9. Blood glucose 130. Serum lipase was negative. Magnesium 1.9. Urinalysis is pending. Differential diagnoses include SBO, pancreatitis, GERD, primary sclerosing cholangitis, cholangiocarcinoma, chronic bronchitis 8:17 AM patient was given Dilaudid 0.5 mg IV x 1, 1 L NS, PO kcl 20 meq x1 and breathing treatments with albuterol and ipratropium. Patient reported that his pain is much better than previously. X-ray was suspicious for early SBO however patient was passing gas and bowel movements appropriately and had a bowel movement this morning. Patient was advised to follow-up with his PCP for workup of intrahepatic biliary tract dilation with an MRCP and was given option to visit [facility] across the street and all the information was provided. SBO and pancreatitis were ruled out. DC instructions Patient was advised to follow-up with his PCP for referral for GI specialist and acquiring MRCP for possible workup of intrahepatic biliary tract dilation Continue taking all his medications as prescribed Patient can schedule an appt in [place] [facility] at [address] by calling [phone] In case of emergency or worsening signs of symptoms patient was advised to come back to the ER or call 118 Medication Administration(s) Medication Administration History Sodium Chloride (Sodium Chloride Rt Michelle 0.9% 3 Ml Nebu) 3 ml INH PRN PRN PRN Reason: SOLN Stop: 10/20/24 07:36 Discontinued Medications Albuterol (Albuterol Rt 2.5 Mg/0.5 Ml Nebu) 10 mg INH X1 ONE Stop: 09/20/24 07:38 Last Admin: 09/20/24 07:45 Dose: 10 mg Documented By: [facility] Albuterol/Ipratropium (Albuterol/Ipratropium (Duoneb) Rt Michelle 3 Ml Nebu) 3 ml INH X1 ONE Stop: 09/20/24 07:38 Hydromorphone HCl (Hydromorphone Inj 2 Mg/Ml Vial) 0.5 mg IVP Q30MIN PRN PRN Reason: PAIN Stop: 09/25/24 05:59 Sodium Chloride (Ns) 500 mls @ 999 mls/hr IV .Q31M ONE Stop: 09/20/24 06:21 Last Infusion: 09/20/24 06:41 Dose: Infused Documented By: Admin: 09/20/24 06:03 Dose: 999 mls/hr Documented By: CVL Ipratropium [place] (Ipratropium Rt 0.5 Mg/ 2.5 Ml Nebu) 1 mg INH X1 ONE Stop: 09/20/24 07:38 Last Admin: 09/20/24 07:45 Dose: 1 mg Documented By: [facility] Ondansetron HCl (Ondansetron Inj 2 Mg/Ml Inj 2 Ml) 4 mg IV X1 ONE; Protocol Stop: 09/20/24 05:52 Last Admin: 09/20/24 06:05 Dose: 4 mg Documented By: CVL Potassium Chloride (Potassium Chloride 20 Meq Tabcr) 20 meq PO X1 ONE Stop: 09/20/24 08:14 Last Admin: 09/20/24 08:27 Dose: 20 meq Documented By: DB Diagnosis Diagnoses ruled out and/or further discussions: SBO, pancreatitis, GERD, primary sclerosing cholangitis, cholangiocarcinoma, chronic bronchitis SBO and pancreatitis as well as GERD were ruled out. Patient does have chronic bronchitis pattern related to COPD due to active smoking. He also had a history of significant intrahepatic biliary tract dilation which he never got worked up for therefore would need workup and inv estigation for primary sclerosing cholangitis or possibility of cholangiocarcinoma or any other pathology related to biliary tract dilation. Patient was advised to follow-up with PCP and follow-up with GI specialist afterwards.
[2024-09-20 06:45] LABS: Alanine Aminotransferase < 7 U/L (10-49); Albumin, Serum 4.1 gm/dL (3.4-4.8); Albumin/Globulin Ratio 1.5 (1.2-2.2); Alkaline Phosphatase 99 U/L (46-116); Anion Gap 7 (7-16); Aspartate Amino Transferase 12 U/L (0-34); BUN/Creatinine Ratio 13 Ratio (12-20); Bilirubin,Total 0.3 mg/dL (0.3-1.2); Blood Urea Nitrogen 12 mg/dL (9-23); Calcium 8.8 mg/dL (8.3-10.6); Calcium (Corrected) 8.8 mg/dL (8.5-10.1); Carbon Dioxide 27.9 mMol/L (20.0-31.0); Chloride 107 mMol/L (98-107); Creatinine (Component) 0.9 mg/dL (0.6-1.3); Globulin 2.8 gm/dL (2.3-3.5); Glucose 130 mg/dL (74-106); Lipase 26 U/L (12-53); Magnesium 1.9 mg/dL (1.6-2.6); Osmolality,Calculated 284 (275-295); Potassium 3.5 mMol/L (3.4-5.1); Sodium 142 mMol/L (136-145); Total Protein 6.9 gm/dL (5.7-8.2); eGFR > 60 See Note
--- NOTE | 2024-09-20 07:33 | PC.NURSE ---
PT MADE AWARE THAT WE NEED A URINE SAMPLE AND STATED, I WILL LET YOU KNOW WHEN I GOT TO GO. PT IN NO ACUTE DISTRESS AND IN A COMFORTABLE POSITION. CALL LIGHT WITHIN REACH. PT GCS 15, A&OX4.
[2024-09-20] MEDS: IPRATROPIUM RT 0.5 MG/ 2.5 ML NEBU 1 MG INH (07:45)
[2024-09-20] MEDS: ALBUTEROL RT 2.5 MG/0.5 ML NEBU 10 MG INH (07:45)
[2024-09-20 07:52] LABS: Collection Type, Urine Clean Catch; Squamous Epithelial Cell,Urine 0 /hpf (0-5)
[2024-09-20 08:22] LABS: Bilirubin,Urine Negative (Negative); Blood,Urine Negative (Negative); Clarity,Urine Clear (Clear/Hazy); Color,Urine Yellow (Lt Yel-Yel); Glucose, Urine Negative (Negative); Ketones,Urine Trace (Negative); Leukocyte Esterase,Urine Negative (Negative); Nitrite,Urine Negative (Negative); Protein,Urine Negative (Neg - Trace); RBC,Urine 4 /hpf (0-3); WBC,Urine < 1 /hpf (0-5)
[2024-09-20] MEDS: POTASSIUM CHLORIDE 20 mEq TABCR PO (08:27)
== END 2024-09-20 10:00 | disposition home or self-care (01) ==
PROVIDERS: Emergency Medicine; Emergency Provider Emergency Medicine; PCP Physician Assistant
DX: K83.8 Other specified diseases of biliary tract (principal); R00.1 Bradycardia, unspecified; I10 Essential (primary) hypertension; I25.2 Old myocardial infarction; E78.00 Pure hypercholesterolemia, unspecified; F17.210 Nicotine dependence, cigarettes, uncomplicated
CPT/HCPCS: 36415; 74022; 80053; 81001; 83690; 83735; 85025; 85610; 93005; 94644; 96361; 96374; 99284; J2405; J7040; A9270